=== PATIENT | male | born 1965 | race Caucasian/White ===

== ENCOUNTER → 2019-03-18 19:41 | Emergency (ER) | payer OTHER ==
[~2019-03-18 19:41] MED LIST: Propofol* 10 MG/ML 20 ML BTL IV PUSH ONE; fentaNYL* 50 MCG/ML 2 ML VIAL (100 MCG VIAL) IV SLOW PU ONE
--- NOTE | 2019-03-18 21:58 | ED ---
Upper Extremity Pain - HPI Summary HPI Summary: 53-year-old male presents with left shoulder injury today. He has a history of dislocations and has had surgery for the past. He states he dove into a pool and felt the dislocation. He tried reducing at home but was unable to do so. He states he had to have sedation the past. Denies any clavicle or lower arm pain. He states he is not able to raise the arm. he works for [employer]. he is left handed. He is an extreme amount of pain. Has no medical conditions. Last ate at 1 PM. - History of Current Complaint Chief Complaint: EDExtremityUpper Stated Complaint: POSS DISLOCATED SHOULDER PER PT Time Seen by Provider: 03/18/19 21:31 - Allergies/Home Medications Allergies/Adverse Reactions: Allergies Allergy/AdvReac Type Severity Reaction Status Date / Time No Known Allergies Allergy Verified 11/12/18 10:44 PMH/Surg Hx/FS Hx/Imm Hx Endocrine/Hematology History: Denies: Hx Diabetes, Hx Thyroid Disease Cardiovascular History: Denies: Hx Hypertension Respiratory History: Reports: Hx Asthma Denies: Hx Chronic Obstructive Pulmonary Disease (COPD) GI History: Denies: Hx Ulcer History: Denies: Hx Dialysis, Hx Renal Disease - Surgical History Surgery Procedure, Year, and Place: left shoulder repair for chronic dislocation Infectious Disease History: No Infectious Disease History: Denies: Hx Clostridium Difficile, Hx Hepatitis, Hx Human Immunodeficiency Virus (HIV), Hx of Known/Suspected MRSA, Hx Shingles, Hx Tuberculosis, Traveled Outside the in Last 30 Days - Family History Known Family History: Positive: None - Social History Alcohol Use: Occasionally Substance Use Type: Reports: None Smoking Status (MU): Never Smoked Tobacco Review of Systems Negative: Fever Negative: Chest Pain Negative: Shortness Of Breath Positive: Myalgia - left shoulder pain All Other Systems Reviewed And Are Negative: Yes Physical Exam Triage Information Reviewed: Yes Vital Signs On Initial Exam: Initial Vitals Temp Pulse Resp BP Pulse Ox 98 F 79 18 145/89 96 03/18/19 19:50 03/18/19 19:50 03/18/19 19:50 03/18/19 19:50 03/18/19 19:50 Vital Signs Reviewed: Yes Appearance: Positive: Well-Appearing Skin: Positive: Warm, Dry Head/Face: Positive: Normal Head/Face Inspection Eyes: Positive: Normal, Conjunctiva Clear ENT: Positive: Pharynx normal Respiratory/Lung Sounds: Positive: Clear to Auscultation, Breath Sounds Present Cardiovascular: Positive: Normal, RRR Procedures - Joint Reduction shoulder Joint Reduction Site: shoulder (L) Conscious Sedation: Yes - with dr douglas Reduction Attempts: 1 Pre-Procedure NV Exam: Yes Post Joint Reduction Film: joint reduced Diagnostics - Vital Signs Vital Signs Temp Pulse Resp BP Pulse Ox 03/18/19 19:50 98 F 79 18 145/89 96 - Laboratory Lab Statement: Any lab studies that have been ordered have been reviewed, and results considered in the medical decision making process. - Radiology shoulder Radiology Interpretation Completed By: ED Physician Summary of Radiographic Findings: dislocation Course/Dx - Course Course Of Treatment: 53-year-old male presents with left shoulder injury today. He has a history of dislocations and has had surgery for the past. He states he dove into a pool and felt the dislocation. He tried reducing at home but was unable to do so. He states he had to have sedation the past. Denies any clavicle or lower arm pain. He states he is not able to raise the arm. he works for [employer]. he is left handed. He is an extreme amount of pain. Has no medical conditions. Last ate at 1 PM. On exam has step off of left shoulder. Neurovascular intact. X-ray shows anterior dislocation. With Dr. Douglas performing conscious sedation shoulder was able to be reduced. Gave sling. Told to follow-up with orthopedic. Patient understands agrees with plan. - Diagnoses Differential Diagnosis/HQI/PQRI: Positive: Fracture (Closed), Strain, Other - dislocation Provider Diagnoses: Dislocation of left shoulder joint Discharge - Sign-Out/Discharge Documenting (check all that apply): Patient Departure Patient Received Moderate/Deep Sedation with Procedure: Yes - Discharge Plan Condition: Stable Disposition: HOME Patient Education Materials: Shoulder Dislocation (ED), Procedural Sedation (ED ) Referrals: Freddy Marc MD [Primary Care Provider] - Delfina Bell MD [Medical Doctor] - Additional Instructions: Keep in sling Take Tylenol and ibuprofen every 6 hours as needed for pain Ice Follow up with ortho Return to ED if develop any new or worsening symptoms - Billing Disposition and Condition Condition: STABLE Disposition: Home
--- NOTE | 2019-03-18 22:10 | ED ---
Progress - Progress Note Progress Note: This patient is a 53 M who presents to the ED with left shoulder pain. Patient has a dislocated shoulder. I discussed the process of conscious sedation and joint reduction with the patient, and he agrees with this plan. Course/Dx - Course Course Of Treatment: This patient has a left shoulder dislocation and is a patient of [facility]. I assisted Bety Boswell in performing a left shoulder dislocation. Risks and benefits for anesthesia and the procedure were discussed with the patient. The patient agrees to perform the reduction under conscious sedation. The patient received propofol and the shoulder was successfully reduced on the second attempt. Patient will be discharged home w dx of left shoulder dislocation. Patient understands and agrees with this plan. - Diagnoses Provider Diagnoses: Dislocation of left shoulder joint Discharge - Sign-Out/Discharge Documenting (check all that apply): Patient Departure - Discharge Patient Received Moderate/Deep Sedation with Procedure: Yes - Discharge Plan Condition: Stable Disposition: HOME Patient Education Materials: Shoulder Dislocation (ED), Procedural Sedation (ED ) Referrals: Freddy Marc MD [Primary Care Provider] - Delfina Bell MD [Medical Doctor] - Additional Instructions: Keep in sling Take Tylenol and ibuprofen every 6 hours as needed for pain Ice Follow up with ortho Return to ED if develop any new or worsening symptoms - Billing Disposition and Condition Condition: STABLE Disposition: Home - Attestation Statements Document Initiated by Brando: Yes Documenting Scribe: Michael Brar Provider For Whom Brando is Documenting (Include Credential): Arben Brennan MD Scribe Attestation: Michael Hutchinson, scribed for Arebn Brennan MD on 03/19/19 at 1932. Scribe Documentation Reviewed: Yes Provider Attestation: The documentation as recorded by the Michael guzman accurately reflects the service I personally performed and the decisions made by me, Arben Brennan MD Status of Scribe Document: Viewed Procedure Note: Sedation - Sedation/Analgesia Procedure: Conscious sedation Informed Consent Obtained: Yes Equipment in Room: Bag and Mask, Pulse Oximeter Plan for Sedation: Moderate Sedation Previous Problem with Sedation: No - Post Procedure Eval Accompanied by Responsible Adult: Discharge Instructions Given: Yes Complications: None Total Sedation/Analgesia Time: Other - 15 minutes - Comments Additional Comments: Conscious sedation performed to reduce left shoulder. Patient received 150mg of propofol without complication, and the shoulder was successfully reduced. Total time of sedation attendance was approximately 15 minutes.
[2019-03-18 23:20] VITALS: BP 135/84
== END | disposition home or self-care (01) ==
LOC: ED 19:41
DX: S43.005A Unspecified dislocation of left shoulder joint, initial encounter (principal); W16.012A Fall into swimming pool striking water surface causing other injury, initial encounter; Y93.12 Activity, springboard and platform diving; Y92.34 Swimming pool (public) as the place of occurrence of the external cause
CPT/HCPCS: 23655; 99156; 99283; J2704; J3010